=== PATIENT | female | born 1965 | race Caucasian/White ===

== ENCOUNTER 2016-11-14 23:43 | Inpatient (IN) | payer OTHER ==
[~2016-11-14] VITALS: Ht 167.6 cm; Wt 135.0 kg
[~2016-11-14 23:43] MED LIST: ATOR10TA9 PO; IBUP200T48 PO; OXYC-302 PO
[2016-11-15] MEDS ORDERED: KETOROLAC 30 MG/1 ML ONE (00:29)
[2016-11-15] MEDS ORDERED: ONDANSETRON 2MG/ML, 2ML ONE (00:29)
[2016-11-15] MEDS ORDERED: SODIUM CHLORIDE FLUSH 10ML SYR IVF ONE (00:30)
[2016-11-15] MEDS ORDERED: SODIUM CHLORIDE 0.9% 1,000ML IVBOLUS ONE (00:30)
[2016-11-15] MEDS ORDERED: ONDANSETRON 2MG/ML, 2ML IVPush ONE (00:30)
[2016-11-15] MEDS ORDERED: KETOROLAC 30 MG/1 ML IVPush ONE (00:30)
[2016-11-15 00:57] LABS: ASPARTATE AMINO TRANSFERASE 17 U/L (15-37); BLOOD UREA NITROGEN 17 mg/dL (7-18)
[2016-11-15] MEDS ORDERED: MORPHINE SULFATE 4 MG/ML, 1ML ONE (01:58)
[2016-11-15] MEDS ORDERED: morphine SULFATE 10 MG/ML, 1ML IVPush ONE (02:00)
[2016-11-15] MEDS ORDERED: SODIUM CHLORIDE 0.9% 1,000 ML IV ONE (02:22)
[2016-11-15] MEDS ORDERED: MORPHINE SULFATE 4 MG/ML, 1ML IVPush PRN (02:30)
[2016-11-15] MEDS ORDERED: ONDANSETRON 2MG/ML, 2ML IVPush PRN (02:30)
[2016-11-15] MEDS ORDERED: SODIUM CHLORIDE FLUSH 10ML SYR IVF PRN (02:30)
[2016-11-15] MEDS ORDERED: HYDROmorphone 1 MG/ML, 1ML IM PRN (03:30)
[2016-11-15] MEDS ORDERED: HYDROmorphone 1 MG/ML, 1ML ONE ×2 (03:36→03:53)
[2016-11-15] MEDS: HYDROmorphone 1 MG/ML, 1ML IV PRN ×5 (03:39→13:53)
[2016-11-15] MEDS ORDERED: NS + 20MEQ KCL 1,000 ML IV SCH (05:45)
[2016-11-15] MEDS ORDERED: DOCUSATE 100 MG CAPSULE PO PRN (06:00)
[2016-11-15] MEDS ORDERED: POLYETHYLENE GLYCOL 17 GM PACKET PO PRN (06:00)
[2016-11-15] MEDS ORDERED: ACETAMINOPHEN 325 MG TABLET PO PRN (06:00)
[2016-11-15] MEDS ORDERED: OXYcodone/APAP 5/325MG TABLET PO PRN (06:00)
[2016-11-15] MEDS ORDERED: HYDROcodone/APAP 5/325 TABLET PO PRN (06:00)
[2016-11-15] MEDS: CEFTRIAXONE PMX 1GM/50ML 50 ML IV SCH (06:22)
[2016-11-15 06:38] VITALS: BP 109/66
[2016-11-15] MEDS: ONDANSETRON 2MG/ML, 2ML IVPush PRN ×2 (06:38→21:05)
[2016-11-15] MEDS: ENOXAPARIN 40 MG/0.4 ML SQ SCH (08:07)
[2016-11-15] MEDS: SENNA/DOCUSATE TABLET PO SCH (08:09)
[2016-11-15] MEDS: PROMETHAZINE 25 MG/ML, 1ML IM PRN ×2 (12:41→18:26)
[2016-11-15 14:13] VITALS: BP 117/73
[2016-11-15] MEDS: BUTALB/APAP/CAFFEINE 50MG/325MG/40MG PO PRN ×2 (17:59→22:22)
[2016-11-15 18:49] LABS: ASPARTATE AMINO TRANSFERASE 23 U/L (15-37); BLOOD UREA NITROGEN 15 mg/dL (7-18)
[2016-11-15 20:07] VITALS: BP 133/88
[2016-11-15] MEDS: ATORVASTATIN 10 MG TABLET PO SCH (21:00)
[2016-11-15] MEDS: SODIUM CHLORIDE 0.9% 1,000 ML IV SCH (22:30)
[2016-11-16 04:23] VITALS: BP 125/79
[2016-11-16 05:00] LABS: BLOOD UREA NITROGEN 14 mg/dL (7-18)
[2016-11-16] MEDS: SODIUM CHLORIDE 0.9% 1,000 ML IV SCH ×3 (05:10→18:14)
[2016-11-16] MEDS: CEFTRIAXONE PMX 1GM/50ML 50 ML IV SCH (06:00)
[2016-11-16] MEDS ORDERED: PROPRANOLOL 20 MG TABLET PO SCH (06:00)
[2016-11-16] MEDS: BUTALB/APAP/CAFFEINE 50MG/325MG/40MG PO PRN (06:00)
[2016-11-16] MEDS: ENOXAPARIN 40 MG/0.4 ML SQ SCH (08:01)
[2016-11-16] MEDS: SENNA/DOCUSATE TABLET PO SCH (08:01)
[2016-11-16] MEDS: ESTRADIOL 2 MG TABLET PO SCH (08:01)
[2016-11-16 08:05] VITALS: BP 121/80
[2016-11-16] MEDS ORDERED: METHOCARBAMOL 750 MG TABLET PO PRN (11:00)
[2016-11-16] MEDS: VALPROATE SODIUM 500 MG in SODIUM CHLORIDE 0.9% 100 ML IV SCH ×3 (12:46→23:37)
[2016-11-16 14:45] VITALS: BP 131/79
[2016-11-16] MEDS: PROPRANOLOL 40 MG TABLET PO SCH (18:14)
[2016-11-16 19:39] VITALS: BP 149/83
[2016-11-16] MEDS ORDERED: OXYcodone/APAP 5/325MG TABLET ONE (20:15)
[2016-11-16] MEDS: ATORVASTATIN 10 MG TABLET PO SCH (20:18)
[2016-11-16] MEDS: MONTELUKAST 10 MG TABLET PO SCH (20:18)
[2016-11-16] MEDS ORDERED: OXYcodone/APAP 5/325MG TABLET PO ONE (20:30)
[2016-11-17 02:21] VITALS: BP 135/82
[2016-11-17] MEDS: VALPROATE SODIUM 500 MG in SODIUM CHLORIDE 0.9% 100 ML IV SCH ×4 (05:17→20:35)
[2016-11-17 06:09] LABS: BLOOD UREA NITROGEN 11 mg/dL (7-18)
[2016-11-17] MEDS: CEFTRIAXONE PMX 1GM/50ML 50 ML IV SCH (06:34)
[2016-11-17] MEDS: PROPRANOLOL 40 MG TABLET PO SCH ×2 (06:34→17:40)
[2016-11-17 06:35] VITALS: BP 136/89
[2016-11-17] MEDS ORDERED: NITR50CA PO (07:53)
[2016-11-17] MEDS ORDERED: PROP40TA PO (07:54)
[2016-11-17] MEDS: SENNA/DOCUSATE TABLET PO SCH (09:33)
[2016-11-17] MEDS: ENOXAPARIN 40 MG/0.4 ML SQ SCH (09:33)
[2016-11-17] MEDS: ESTRADIOL 2 MG TABLET PO SCH (09:33)
[2016-11-17] MEDS: KETOROLAC 30 MG/1 ML IVPush PRN (14:10)
[2016-11-17 14:20] VITALS: BP 124/84
[2016-11-17 20:05] VITALS: BP 114/75
[2016-11-17] MEDS: ATORVASTATIN 10 MG TABLET PO SCH (20:35)
[2016-11-17] MEDS: MONTELUKAST 10 MG TABLET PO SCH (20:35)
[2016-11-17] MEDS: BUTALB/APAP/CAFFEINE 50MG/325MG/40MG PO PRN (21:55)
[2016-11-18] MEDS: VALPROATE SODIUM 500 MG in SODIUM CHLORIDE 0.9% 100 ML IV SCH ×2 (02:23→09:08)
[2016-11-18 02:56] VITALS: BP 111/74
[2016-11-18] MEDS: PROPRANOLOL 40 MG TABLET PO SCH (06:00)
[2016-11-18] MEDS: CEFTRIAXONE PMX 1GM/50ML 50 ML IV SCH (06:18)
[2016-11-18 06:51] LABS: BLOOD UREA NITROGEN 8 mg/dL (7-18)
[2016-11-18] MEDS ORDERED: POTASSIUM CHLORIDE 20 MEQ TAB.ER.PRT PO ONE (07:30)
[2016-11-18 08:14] VITALS: BP 124/74
[2016-11-18] MEDS: ESTRADIOL 2 MG TABLET PO SCH (08:38)
[2016-11-18] MEDS: SENNA/DOCUSATE TABLET PO SCH (08:39)
[2016-11-18] MEDS: KETOROLAC 30 MG/1 ML IVPush PRN (08:39)
[2016-11-18] MEDS: ENOXAPARIN 40 MG/0.4 ML SQ SCH (08:39)
[2016-11-18] MEDS ORDERED: MONT10TA9 PO (11:51)
[2016-11-18] MEDS ORDERED: POTA10TA11 PO (11:53)
[2016-11-18 14:37] VITALS: BP 160/85
== END 2016-11-18 16:15 | disposition home or self-care (01) | DRG 689 ==
LOC: ED 23:59 → EDIP 11-15 02:22 → 4NOR 11-15 03:14 → DCLOUNGE 11-18 15:36
PROVIDERS: ADMIT Family Medicine; ATTEND Family Medicine
DX: N39.0 Urinary tract infection, site not specified (principal); N17.0 Acute kidney failure with tubular necrosis; Z68.41 Body mass index [BMI] 40.0-44.9, adult; F15.93 Other stimulant use, unspecified with withdrawal; I10 Essential (primary) hypertension; E66.01 Morbid (severe) obesity due to excess calories; E78.5 Hyperlipidemia, unspecified; E87.6 Hypokalemia; F12.90 Cannabis use, unspecified, uncomplicated; G43.909 Migraine, unspecified, not intractable, without status migrainosus; K76.0 Fatty (change of) liver, not elsewhere classified; R73.9 Hyperglycemia, unspecified; J30.2 Other seasonal allergic rhinitis; N23 Unspecified renal colic; Z79.899 Other long term (current) drug therapy; Z80.3 Family history of malignant neoplasm of breast; Z82.49 Family history of ischemic heart disease and other diseases of the circulatory system; Z90.89 Acquired absence of other organs; Z90.710 Acquired absence of both cervix and uterus
CPT/HCPCS: 36415; 70450; 74176; 76700; 80048; 80053; 81001; 83036; 83690; 85025; 87086; J0696; J1170; J1650; J1885; J2405; J2550; J3480; J2270; J7030

== ENCOUNTER 2017-06-29 09:39 | Emergency (ER) | payer OTHER ==
[~2017-06-29] VITALS: Ht 167.6 cm; Wt 118.3 kg
[~2017-06-29 09:39] MED LIST changes: -IBUP200T48 PO; +IBUP200T49 PO; +MONT10TA9 PO; +NITR50CA PO; +POTA10TA11 PO; +PROP40TA PO
[2017-06-29] MEDS ORDERED: SODIUM CHLORIDE 0.9% 1,000 ML IV ONE (10:25)
[2017-06-29] MEDS ORDERED: DIPHENHYDRAMINE 50 MG/ML, 1ML IVPush ONE (10:30)
[2017-06-29] MEDS ORDERED: SODIUM CHLORIDE 0.9% 1,000ML IVBOLUS ONE (10:30)
[2017-06-29] MEDS ORDERED: KETOROLAC 30 MG/1 ML IVPush ONE (10:30)
[2017-06-29] MEDS ORDERED: METOCLOPRAMIDE 5 MG/ML, 2ML IVPush ONE (10:30)
[2017-06-29] MEDS ORDERED: SODIUM CHLORIDE FLUSH 10ML SYR IVF ONE (10:30)
[2017-06-29] MEDS ORDERED: KETOROLAC 30 MG/1 ML ONE (10:40)
[2017-06-29] MEDS ORDERED: METOCLOPRAMIDE 5 MG/ML, 2ML ONE (10:40)
[2017-06-29] MEDS ORDERED: DIPHENHYDRAMINE 50 MG/ML, 1ML ONE (10:40)
[2017-06-29 11:20] LABS: BASOPHILS # (AUTO) 0.02 x10^3/uL (0-0.1); BASOPHILS % (AUTO) 0 % (0-1); EOSINOPHILS # (AUTO) 0.06 x10^3/uL (0-0.4); EOSINOPHILS % (AUTO) 1 % (1-7); LYMPHOCYTES # (AUTO) 1.72 x10^3/uL (1-3.4); LYMPHOCYTES % (AUTO) 31 % (22-44); MD NO; MEAN CORPUSCULAR HEMOGLOBIN 29.1 pg (27.0-34.8); MEAN CORPUSCULAR HGB CONC 34.4 g/dL (32.4-35.8); MEAN CORPUSCULAR VOLUME 84.6 fL (80-100); MEAN PLATELET VOLUME 9.4 fL (7.4-10.4); MONOCYTES % (AUTO) 4 % (2-9); NEUTROPHILS # (AUTO) 3.55 x10^3/uL (1.8-6.8); NEUTROPHILS % (AUTO) 64 % (42-75); PLATELET COUNT 285 x10^3/uL (130-400); RED BLOOD COUNT 5.04 x10^6/uL (3.82-5.3); RED CELL DISTRIBUTION WIDTH 13.3 % (9.6-15.2)
[2017-06-29 11:27] LABS: ALANINE AMINOTRANSFERASE 45 U/L (12-78); ALBUMIN 3.3 g/dL (3.4-5.0); ANION GAP 7 mmol/L (5-15); CALCIUM 8.4 mg/dL (8.5-10.1); CHLORIDE 109 mmol/L (98-107); CREATININE 0.75 mg/dL (0.55-1.02)
[2017-06-29 11:29] LABS: ALKALINE PHOSPHATASE 82 U/L (45-117); BILIRUBIN,TOTAL 0.4 mg/dL (0.2-1.0); TOTAL PROTEIN 7.5 g/dL (6.4-8.2)
[2017-06-29 11:37] VITALS: BP 115/65
== END 2017-06-29 12:21 | disposition home or self-care (01) ==
LOC: ED 11:12
DX: K52.9 Noninfective gastroenteritis and colitis, unspecified (principal); G43.001 Migraine without aura, not intractable, with status migrainosus; E78.5 Hyperlipidemia, unspecified
CPT/HCPCS: 36415; 80053; 85025; 96361; 96374; 96375; 99284; J1200; J1885; J2765; J7030

== ENCOUNTER → 2018-01-03 | Outpatient (CLI) | payer OTHER | END | disposition home or self-care (01) | LOC: CFH 13:46 | PROVIDERS: ATTEND Nurse Practitioner | DX: Z12.31 Encounter for screening mammogram for malignant neoplasm of breast (principal) | CPT/HCPCS: 77067 ==

== ENCOUNTER → 2020-03-31 | Outpatient (CLI) | payer OTHER ==
[~2020-03-31] MED LIST changes: +MONT10TA11 PO; -MONT10TA9 PO
== END | disposition home or self-care (01) ==
LOC: CFH 14:54
PROVIDERS: ATTEND Nurse Practitioner
DX: Z12.31 Encounter for screening mammogram for malignant neoplasm of breast (principal)
CPT/HCPCS: 77063; 77067